=== PATIENT | male | born 1970 | race Caucasian/White ===

== ENCOUNTER 2020-11-16 16:59 | Emergency (ER) | payer BC, SELFPAY ==
[2020-11-16 17:04] VITALS: BP 130/85; PULSE 78; RESP 18; TEMP 36.6; O2SAT 91; BMI 26.2
--- NOTE | 2020-11-16 17:51 | EX.ED.DYSGE1 ---
HPI History of Present Illness Chief Complaint: Allergic Reaction Detail of Chief Complaint: To a bee sting on his right arm Informant: patient and friend Onset/Context/Timing Onset: Today Context: Sudden Onset Timing: Continuous Current Severity: Severe Maximum Severity: Severe Narrative Narrative: 50-year-old male history of anxiety. Was stung on his right arm by a bee went inside and immediately turned in weight according to the person you are given a history and passed out. Squad was called who administered Benadryl IV and an EpiPen. Patient is doing much better now. He is never had a severe reaction to a bee sting before. Prior similar symptoms: No Recent Illness/Hospitalization: No PFSH PFSH Medical History Anxiety Home Medications epinephrine 0.3 mg IM Q10M PRN #1 ea 11/16/20 [Rx Last Taken Unknown] Allergy/AdvReac Type Severity Reaction Status Date / Time bee pollen Allergy Anaphylaxis Verified 11/16/20 17:07 Social History Smoking Status: Current every day smoker tobacco type: cigarettes ROS ROS ED ROS Narrative No recent illness. Review of Systems ROS Unobtainable: Denies due to encephalopathy Constitutional Constitutional ED: Denies chills or fever(s) Eyes Eyes: Denies change in vision ENT ENT ED: Denies ear pain or sore throat Cardiovascular Cardiovascular: Denies chest pain or palpitations Respiratory/Chest Respiratory/Chest: Denies cough or dyspnea Gastrointestinal Gastrointestinal: Denies abdominal pain, diarrhea, nausea or vomiting Genitourinary Genitourinary ED: Denies dysuria Musculoskeletal Musculoskeletal: Denies myalgias Integumentary Denies rash Neurologic Neurologic: Denies headache(s) Psychiatric Psychiatric: Denies depression Endocrine Endocrinology: Denies polyuria Allergic/Immunologic Allergic/Immunologic ED: Denies urticaria EXAM Physical Exam Narrative Exam Narrative: Well-appearing middle-age male vital signs stable afebrile. Does not seem septic or toxic. HEENT exam normal. No swelling of the lips or tongue. No trouble breathing or swallowing. Neck nontender. Lungs clear to auscultation. Heart regular rhythm no murmur. Abdomen soft nontender. Extremities moves all 4. Right bicep Quarter sized local reaction no bee sting no stinger in place. Skin otherwise no other rashes. Back and neurologic exam normal. Const Vital Signs: 11/16/20 17:04 Temperature 97.9 F Temperature Source Temporal Pulse Rate 78 Respiratory Rate 18 Blood Pressure 130/85 H Blood Pressure Mean 100 Pulse Ox 91 Oxygen Delivery Method Room Air Positive well nourished and well developed General Appearance ED: well developed and NAD; Negative for cyanotic or diaphoretic HEENT Reports moist mucous membranes Negative for trauma or tenderness Eyes PERRL and EOMs intact bilaterally Neck no lymphadenopathy, supple and no JVD General: Negative for tenderness Chest Wall inspection of chest normal and palpation of chest normal Resp normal respiratory effort and clear to auscultation bilaterally Cardio regular rate, regular rhythm, S1 normal heart sound, S2 normal heart sound and no murmurs GI normal to inspection, nondistended, normoactive bowel sounds, non-tender and non-distended Palpation: soft Back/Spine no CVA tenderness Extremity normal to inspection Extremity Narrative: Local bee sting reaction right bicep. General Extremety ED: Negative for tenderness Neuro oriented x3 and CN's II-XII intact bilaterally Neuro Narrative: Sleepy from the IV Benadryl. Sensorium / Orientation: alert Motor Exam: strength 5/5 throughout Psych mental status grossly normal Skin No no rashes or lesions noted and no wounds Skin Narrative: Local reaction right bicep. General Skin Exam: Negative for jaundice Rashes: rashes noted MDM MDM MDM Narrative Medical decision making narrative: Historically it sounds like the patient had an anaphylactic reaction to a single bee sting. He is doing well now. Squad treated him with EpiPen and IV Benadryl. He will be observed in the emergency department discharged home with an EpiPen prescription. Discharge Plan Triage Chief Complaint: Allergic Reaction ED Provider: Markus Peoples Dx/Rx/DC Orders Clinical Impression: Anaphylactic reaction, Bee sting Instructions: ED BEE STING General Allergic Rxn Prescriptions: New epinephrine 0.3 mg/0.3 mL auto-injector 0.3 mg IM Q10M PRN (Reason: anaphylaxis) Qty: 1 RF: 1 Primary Care Provider: Piero Fierro Referrals: Piero Fierro MD [Primary Care Provider] - Activity Restrictions/Additional Instructions: Epinephrine pen if he gets stung again and started having a severe reaction usually.You had a severe allergic reaction called anaphylaxis to a bee sting. Disposition Disposition: Home, Self Care
[2020-11-16 18:01] VITALS: BP 145/97; PULSE 80; RESP 15; O2SAT 99
[2020-11-16 18:23] VITALS: BP 141/79; PULSE 77; RESP 13; O2SAT 99
[2020-11-16] MEDS: Ondansetron 4 MG/2 ML Vial IV (18:25)
== END 2020-11-16 18:29 | disposition home or self-care (01) ==
LOC: ED 18:06
PROVIDERS: Emergency Provider Emergency Medicine; PCP Family Medicine
DX: T78.2XXA Anaphylactic shock, unspecified, initial encounter (principal); T63.441A Toxic effect of venom of bees, accidental (unintentional), initial encounter; F17.210 Nicotine dependence, cigarettes, uncomplicated
CPT/HCPCS: 96374; 99284; J7030; J2405